=== PATIENT | female | born 1955 | race African-American/Black ===

== ENCOUNTER 2022-10-27 18:03 | Emergency (ER) | payer OTHER ==
[2022-10-27 18:12] VITALS: BP 126/64; PULSE 80; RESP 18; TEMP 98.9; BMI 34.5
[2022-10-27] MEDS ORDERED: ACETAMINOPHEN 1000 MG/100 ML BAG IVPB ONE (18:51)
[2022-10-27] MEDS ORDERED: ACETAMINOPHEN INJECTION 100 ML IVPB ONE (19:38)
[2022-10-27 20:04] LABS: HEMATOCRIT 37.8 % (32.4-45.2); HEMOGLOBIN 12.3 GM/dL (10.7-15.3); MCH 30.1 pg (25.7-33.7); MCHC 32.6 g/dl (32.0-36.0); MEAN CELL VOLUME 92.3 fl (80-96); MEAN PLT VOLUME 8.1 fl (7.5-11.1); PLATELET COUNT 276 10^3/uL (134-434); RBC 4.09 M/mm3 (3.60-5.2); RDW 15.2 % (11.6-15.6); WHITE BLOOD COUNT 9.4 K/mm3 (4.0-10.0)
[2022-10-27 20:19] LABS: POTASSIUM 4.3 mmol/L (3.5-5.1)
[2022-10-27 20:21] LABS: BLOOD UREA NITROGEN 10.6 mg/dL (7-18); CALCIUM 9.9 mg/dL (8.5-10.1)
[2022-10-27 20:22] LABS: ALBUMIN 3.9 g/dl (3.4-5.0); MAGNESIUM 1.9 mg/dL (1.8-2.4)
[2022-10-27 20:25] LABS: CREATININE 0.8 mg/dL (0.55-1.3)
[2022-10-27 20:26] LABS: BILIRUBIN,TOTAL 0.3 mg/dL (0.2-1); TOT PROT 7.3 g/dl (6.4-8.2)
[2022-10-27] MEDS ORDERED: KETOROLAC TROMETHAMINE 15 MG/ML VIAL IVPUSH ONE (20:44)
[2022-10-27] MEDS ORDERED: KETOROLAC TROMETHAMINE 15 MG/ML VIAL ONE (20:46)
[2022-10-27 21:35] LABS: EPI CELLS 30 /uL (0-25.1); HYALINE CASTS 0 /uL (0-3.1); PH,URINE 5.5 (5.0-8.0); URINE APPEARANCE CLEAR; URINE BACTERIA 319 /uL (0-1359); URINE BILIRUBIN NEGATIVE (NEGATIVE); URINE COLOR YELLOW; URINE GLUCOSE (UA) NEGATIVE (NEGATIVE); URINE KETONE NEGATIVE (NEGATIVE); URINE LEUK ESTERASE NEGATIVE (NEGATIVE); URINE NITRITE NEGATIVE (NEGATIVE); URINE PROTEIN NEGATIVE (NEGATIVE); URINE RBC 22 /uL (0-23.9); URINE UROBILINOGEN 0.2 mg/dL (0.2-1.0); URINE WBC 50 /uL (0-25.8)
== END 2022-10-27 23:53 | disposition home or self-care (01) ==
LOC: JER 18:03
PROC: 3E033NZ Introduction of Analgesics, Hypnotics, Sedatives into Peripheral Vein, Percutaneous Approach (ICD-10-PCS; principal; 2022-10-27)
PROC: 3E033GC Introduction of Other Therapeutic Substance into Peripheral Vein, Percutaneous Approach (ICD-10-PCS; 2022-10-27)
DX: M54.2 Cervicalgia (principal); M79.602 Pain in left arm; R07.89 Other chest pain; M25.512 Pain in left shoulder
CPT/HCPCS: 36415; 71045-TC-FY; 71275-TC; 72125-TC; 80053; 81003; 83735; 84484; 85027; 85379; 87086; 93005; 93010; 99285-25; Q9967

== ENCOUNTER 2023-03-16 14:35 | Inpatient (IN) | payer OTHER ==
[2023-03-16] MEDS ORDERED: MAG HYDROX/AL HYDROX/SIMETH 30 ML UNIT-DOSE CUP PO ONE (16:07)
[2023-03-16] MEDS ORDERED: ACETAMINOPHEN 1000 MG/100 ML BAG IVPB ONE ×2 (16:07→23:32)
[2023-03-16] MEDS ORDERED: FAMOTIDINE 20 MG/50 ML IVPB 20 MG/50 ML MG IVPB ONE ×2 (16:07→16:19)
[2023-03-16] MEDS ORDERED: ONDANSETRON 4 MG/2 ML VIAL IVPUSH ONE (16:08)
[2023-03-16] MEDS ORDERED: ONDANSETRON 4 MG/2 ML VIAL ONE (16:19)
[2023-03-16] MEDS ORDERED: MAG HYDROX/AL HYDROX/SIMETH 30 ML UNIT-DOSE CUP ONE (16:19)
[2023-03-16] MEDS ORDERED: ACETAMINOPHEN INJECTION 100 ML IVPB ONE (16:19)
[2023-03-16] MEDS ORDERED: SODIUM CHLORIDE 0.9% 500 ML INFUS.BAG IV ONE (16:23)
[2023-03-16 17:16] LABS: VENOUS BASE EXCESS -1.1 mmol/L (-2-2); VENOUS PCO2 50.9 mmHg (38-52); VENOUS PH 7.319 (7.310-7.410)
[2023-03-16 17:31] LABS: BASO % 0.1 % (0-2.0); HEMATOCRIT 38.4 % (32.4-45.2); HEMOGLOBIN 12.6 GM/dL (10.7-15.3); LYMPH % 5.1 % (8-40); MCH 30.4 pg (25.7-33.7); MCHC 32.9 g/dl (32.0-36.0); MEAN CELL VOLUME 92.4 fl (80-96); MEAN PLT VOLUME 8.3 fl (7.5-11.1); MONO % 2.3 % (3.8-10.2); NEUT % 92.5 % (42.8-82.8); PLATELET COUNT 281 10^3/uL (134-434); RBC 4.16 M/mm3 (3.60-5.2); RDW 14.1 % (11.6-15.6); WHITE BLOOD COUNT 11.2 K/mm3 (4.0-10.0)
[2023-03-16 17:33] LABS: EPI CELLS 8 /uL (0-25.1); HYALINE CASTS 1 /uL (0-3.1); URINE APPEARANCE CLEAR; URINE BACTERIA 35 /uL (0-1359); URINE BILIRUBIN NEGATIVE (NEGATIVE); URINE COLOR YELLOW; URINE GLUCOSE (UA) NEGATIVE (NEGATIVE); URINE KETONE 1+ (NEGATIVE); URINE LEUK ESTERASE NEGATIVE (NEGATIVE); URINE NITRITE NEGATIVE (NEGATIVE); URINE PROTEIN NEGATIVE (NEGATIVE); URINE RBC 54 /uL (0-23.9); URINE UROBILINOGEN 0.2 mg/dL (0.2-1.0); URINE WBC 6 /uL (0-25.8)
[2023-03-16 17:57] LABS: ANISOCYTOSIS 1+; MACROCYTOSIS 1+
[2023-03-16 17:58] LABS: ALBUMIN 4.3 g/dl (3.4-5.0)
[2023-03-16 17:59] LABS: BLOOD UREA NITROGEN 10.3 mg/dL (7-18)
[2023-03-16 18:01] LABS: CREATININE 0.9 mg/dL (0.55-1.3)
[2023-03-16 18:02] LABS: TOT PROT 7.8 g/dl (6.4-8.2)
[2023-03-16 18:03] LABS: BILIRUBIN,TOTAL 0.5 mg/dL (0.2-1)
[2023-03-16] MEDS ORDERED: morphine CARPU-JECT 4 MG/1 ML DISP.SYRIN IVPUSH ONE (18:17)
[2023-03-16] MEDS ORDERED: morphine SULFATE 4 MG/ML VIAL ONE (18:22)
[2023-03-16] MEDS ORDERED: ONDANSETRON 4 MG TABLET PO ONE (22:30)
[2023-03-16] MEDS ORDERED: ONDANSETRON *ODT* 4 MG TABLET ONE (22:41)
[2023-03-17 07:22] LABS: BASO % 0.5 % (0-2.0); EOS % 0.4 % (0-4.5); HEMATOCRIT 35.8 % (32.4-45.2); HEMOGLOBIN 11.8 GM/dL (10.7-15.3); LYMPH % 23.1 % (8-40); MCHC 32.9 g/dl (32.0-36.0); MEAN CELL VOLUME 94.2 fl (80-96); MEAN PLT VOLUME 8.8 fl (7.5-11.1); MONO % 10.2 % (3.8-10.2); NEUT % 65.8 % (42.8-82.8); PLATELET COUNT 240 10^3/uL (134-434); WHITE BLOOD COUNT 8.1 K/mm3 (4.0-10.0)
[2023-03-17] MEDS ORDERED: PANTOPRAZOLE SODIUM 40 MG VIAL ONE (09:51)
[2023-03-17] MEDS ORDERED: ONDANSETRON 4 MG/2 ML VIAL IVPUSH PRN (09:54)
[2023-03-17] MEDS: LACTATED RINGERS SOLUTION 1,000 ML/1,000 ML INFUS.BAG IV SCH ×2 (10:02→23:11)
[2023-03-17] MEDS: PANTOPRAZOLE SODIUM 40 MG VIAL IVPUSH SCH (10:03)
[2023-03-17 12:06] LABS: BASO % 0.5 % (0-2.0); EOS % 0.5 % (0-4.5); HEMATOCRIT 36.2 % (32.4-45.2); HEMOGLOBIN 11.8 GM/dL (10.7-15.3); LYMPH % 23.7 % (8-40); MCH 30.5 pg (25.7-33.7); MCHC 32.5 g/dl (32.0-36.0); MEAN CELL VOLUME 93.8 fl (80-96); MEAN PLT VOLUME 8.5 fl (7.5-11.1); MONO % 8.2 % (3.8-10.2); NEUT % 67.1 % (42.8-82.8); PLATELET COUNT 262 10^3/uL (134-434); RBC 3.86 M/mm3 (3.60-5.2); RDW 14.1 % (11.6-15.6); WHITE BLOOD COUNT 8.2 K/mm3 (4.0-10.0)
[2023-03-17] MEDS: ACETAMINOPHEN 1000 MG/100 ML BAG IVPB PRN (12:47)
[2023-03-17 12:57] VITALS: BMI 33.3
[2023-03-18] MEDS: ACETAMINOPHEN 1000 MG/100 ML BAG IVPB PRN (08:08)
[2023-03-18 10:08] LABS: BASO % 0.4 % (0-2.0); EOS % 2.2 % (0-4.5); HEMATOCRIT 34.5 % (32.4-45.2); MCH 30.4 pg (25.7-33.7); MCHC 31.9 g/dl (32.0-36.0); MEAN CELL VOLUME 95.3 fl (80-96); MEAN PLT VOLUME 8.6 fl (7.5-11.1); MONO % 8.1 % (3.8-10.2); NEUT % 58.3 % (42.8-82.8); PLATELET COUNT 240 10^3/uL (134-434); RBC 3.62 M/mm3 (3.60-5.2); RDW 14.5 % (11.6-15.6); WHITE BLOOD COUNT 5.7 K/mm3 (4.0-10.0)
[2023-03-18] MEDS: PANTOPRAZOLE SODIUM 40 MG VIAL IVPUSH SCH (10:16)
[2023-03-18] MEDS: LACTATED RINGERS SOLUTION 1,000 ML/1,000 ML INFUS.BAG IV SCH (10:17)
[2023-03-18] MEDS ORDERED: CEFAZOLIN 1 GM in DEXTROSE 5%-WATER - 50 ML IVPB ONE (10:30)
[2023-03-18 10:58] LABS: POTASSIUM 3.8 mmol/L (3.5-5.1)
[2023-03-18 11:12] LABS: ALBUMIN 3.6 g/dl (3.4-5.0); CALCIUM 8.9 mg/dL (8.5-10.1)
[2023-03-18 11:15] LABS: CREATININE 0.9 mg/dL (0.55-1.3)
[2023-03-18 11:16] LABS: BILIRUBIN,TOTAL 0.6 mg/dL (0.2-1); TOT PROT 6.4 g/dl (6.4-8.2)
[2023-03-18] MEDS ORDERED: FLU VACCINE (FLULAVAL) PF 60 MCG/0.5 ML SYRINGE 2023-2024 IM ONE (12:59)
[2023-03-19] MEDS: LACTATED RINGERS SOLUTION 1,000 ML/1,000 ML INFUS.BAG IV SCH (01:09)
[2023-03-19 08:51] LABS: BASO % 0.3 % (0-2.0); EOS % 1.3 % (0-4.5); HEMATOCRIT 36.2 % (32.4-45.2); HEMOGLOBIN 12.2 GM/dL (10.7-15.3); MCH 31.5 pg (25.7-33.7); MCHC 33.9 g/dl (32.0-36.0); MEAN CELL VOLUME 92.9 fl (80-96); MEAN PLT VOLUME 8.4 fl (7.5-11.1); MONO % 7.3 % (3.8-10.2); NEUT % 76.1 % (42.8-82.8); PLATELET COUNT 247 10^3/uL (134-434); RBC 3.89 M/mm3 (3.60-5.2); RDW 14.2 % (11.6-15.6)
[2023-03-19 08:55] LABS: POTASSIUM 3.9 mmol/L (3.5-5.1)
[2023-03-19 09:04] LABS: ALBUMIN 3.6 g/dl (3.4-5.0); BLOOD UREA NITROGEN 7.2 mg/dL (7-18)
[2023-03-19 09:05] LABS: CREATININE 0.8 mg/dL (0.55-1.3)
[2023-03-19 09:06] LABS: BILIRUBIN,TOTAL 0.6 mg/dL (0.2-1); TOT PROT 6.6 g/dl (6.4-8.2)
[2023-03-19] MEDS ORDERED: ACETAMINOPHEN 1000 MG/100 ML BAG IVPB PRN (09:38)
[2023-03-19] MEDS: PANTOPRAZOLE SODIUM 40 MG VIAL IVPUSH SCH (09:50)
[2023-03-20] MEDS: LACTATED RINGERS SOLUTION 1,000 ML/1,000 ML INFUS.BAG IV SCH ×2 (03:48→18:12)
[2023-03-20] MEDS: PANTOPRAZOLE SODIUM 40 MG VIAL IVPUSH SCH (09:12)
[2023-03-20 10:03] LABS: BASO % 0.4 % (0-2.0); EOS % 2.6 % (0-4.5); HEMATOCRIT 32.1 % (32.4-45.2); HEMOGLOBIN 10.6 GM/dL (10.7-15.3); LYMPH % 21.3 % (8-40); MCH 30.6 pg (25.7-33.7); MCHC 33.1 g/dl (32.0-36.0); MEAN CELL VOLUME 92.4 fl (80-96); MEAN PLT VOLUME 8.7 fl (7.5-11.1); MONO % 8.7 % (3.8-10.2); PLATELET COUNT 220 10^3/uL (134-434); RBC 3.47 M/mm3 (3.60-5.2); RDW 14.2 % (11.6-15.6)
[2023-03-20 10:19] LABS: POTASSIUM 3.8 mmol/L (3.5-5.1)
[2023-03-20 10:22] LABS: CALCIUM 9.2 mg/dL (8.5-10.1)
[2023-03-20 10:23] LABS: ALBUMIN 3.2 g/dl (3.4-5.0); BLOOD UREA NITROGEN 6.2 mg/dL (7-18)
[2023-03-20 10:26] LABS: CREATININE 0.7 mg/dL (0.55-1.3)
[2023-03-20 10:27] LABS: BILIRUBIN,TOTAL 0.7 mg/dL (0.2-1)
[2023-03-20 10:28] LABS: TOT PROT 5.9 g/dl (6.4-8.2)
[2023-03-20] MEDS ORDERED: BUPIVACAINE HCL/PF 0.25% (2.5MG/ML) 10 ML VIAL ONE (11:12)
[2023-03-20] MEDS ORDERED: BUPIVACAINE HCL/PF 0.25% (2.5MG/ML) 10 ML VIAL IJ ONE ×2 (11:23→14:00)
[2023-03-20] MEDS ORDERED: FENTANYL CITRATE/PF 50 MCG/ML VIAL ONE ×4 (13:02→17:17)
[2023-03-20] MEDS ORDERED: ROCURONIUM BROMIDE 50 MG/5 ML SYRINGE ONE ×2 (13:03→14:12)
[2023-03-20] MEDS ORDERED: PROPOFOL 40 ML ONE (13:03)
[2023-03-20] MEDS ORDERED: cefOXitin SODIUM 2 GM VIAL (RESTRICTED TO ID) IVPB ONE ×2 (13:56→14:00)
[2023-03-20] MEDS ORDERED: SEVOFLURANE 250 ML BTL ONE (14:51)
[2023-03-20] MEDS ORDERED: NEOSTIGMINE METHYLSULFATE 0.5 MG/1 ML - 10 ML MDV ONE (15:52)
[2023-03-20] MEDS ORDERED: ONDANSETRON 4 MG/2 ML VIAL IVPUSH PRN ×2 (16:43→16:47)
[2023-03-20] MEDS ORDERED: LACTATED RINGERS SOLUTION 1,000 ML IV SCH (17:00)
[2023-03-20] MEDS: ACETAMINOPHEN 1000 MG/100 ML BAG IVPB SCH ×2 (17:10→21:54)
[2023-03-20] MEDS: HEPARIN NA (PORCINE) 5,000 UNITS/ML 1ML VIAL SQ SCH (21:11)
[2023-03-21] MEDS: ACETAMINOPHEN 1000 MG/100 ML BAG IVPB SCH ×2 (03:49→12:02)
[2023-03-21] MEDS: LACTATED RINGERS SOLUTION 1,000 ML/1,000 ML INFUS.BAG IV SCH ×3 (04:20→17:43)
[2023-03-21] MEDS: HEPARIN NA (PORCINE) 5,000 UNITS/ML 1ML VIAL SQ SCH ×2 (09:32→21:17)
[2023-03-21] MEDS: PANTOPRAZOLE SODIUM 40 MG VIAL IVPUSH SCH (09:32)
[2023-03-21 10:01] LABS: BASO % 0.4 % (0-2.0); EOS % 0.8 % (0-4.5); HEMATOCRIT 34.8 % (32.4-45.2); HEMOGLOBIN 11.4 GM/dL (10.7-15.3); LYMPH % 24.2 % (8-40); MCH 30.6 pg (25.7-33.7); MCHC 32.8 g/dl (32.0-36.0); MEAN CELL VOLUME 93.1 fl (80-96); MEAN PLT VOLUME 8.7 fl (7.5-11.1); MONO % 7.4 % (3.8-10.2); NEUT % 67.2 % (42.8-82.8); PLATELET COUNT 223 10^3/uL (134-434); RBC 3.74 M/mm3 (3.60-5.2); RDW 14.2 % (11.6-15.6); WHITE BLOOD COUNT 7.2 K/mm3 (4.0-10.0)
[2023-03-21 10:17] LABS: POTASSIUM 3.9 mmol/L (3.5-5.1)
[2023-03-21 10:30] LABS: CALCIUM 8.9 mg/dL (8.5-10.1)
[2023-03-21 10:31] LABS: BLOOD UREA NITROGEN 7.7 mg/dL (7-18)
[2023-03-21 10:34] LABS: CREATININE 0.7 mg/dL (0.55-1.3)
[2023-03-21] MEDS: oxyCODONE HCL 5 MG TABLET PO PRN (15:49)
[2023-03-21] MEDS: morphine SULFATE 4 MG/ML VIAL IVPUSH PRN (19:37)
[2023-03-22] MEDS: oxyCODONE HCL 5 MG TABLET PO PRN (03:35)
[2023-03-22] MEDS: LACTATED RINGERS SOLUTION 1,000 ML/1,000 ML INFUS.BAG IV SCH ×2 (03:37→18:52)
[2023-03-22] MEDS: morphine SULFATE 4 MG/ML VIAL IVPUSH PRN ×2 (06:28→17:44)
[2023-03-22 09:31] LABS: BASO % 0.5 % (0-2.0); EOS % 1.4 % (0-4.5); HEMATOCRIT 33.2 % (32.4-45.2); HEMOGLOBIN 10.8 GM/dL (10.7-15.3); LYMPH % 27.5 % (8-40); MCH 30.8 pg (25.7-33.7); MCHC 32.5 g/dl (32.0-36.0); MEAN CELL VOLUME 94.7 fl (80-96); MEAN PLT VOLUME 8.6 fl (7.5-11.1); MONO % 8.2 % (3.8-10.2); NEUT % 62.4 % (42.8-82.8); PLATELET COUNT 246 10^3/uL (134-434); RBC 3.51 M/mm3 (3.60-5.2); RDW 14.2 % (11.6-15.6)
[2023-03-22 09:35] LABS: POTASSIUM 3.9 mmol/L (3.5-5.1)
[2023-03-22 09:38] LABS: BLOOD UREA NITROGEN 6.3 mg/dL (7-18)
[2023-03-22 09:43] LABS: CREATININE 0.8 mg/dL (0.55-1.3)
[2023-03-22] MEDS: HEPARIN NA (PORCINE) 5,000 UNITS/ML 1ML VIAL SQ SCH ×2 (10:42→22:19)
[2023-03-22] MEDS: PANTOPRAZOLE SODIUM 40 MG VIAL IVPUSH SCH (10:43)
[2023-03-23] MEDS: morphine SULFATE 4 MG/ML VIAL IVPUSH PRN (02:37)
[2023-03-23] MEDS ORDERED: POLYETHYLENE GLYCOL (HEALTHYLAX) 3350 17 GM PACKET PO ONE (09:15)
[2023-03-23] MEDS ORDERED: POLYETHYLENE GLYCOL (HEALTHYLAX) 3350 17 GM PACKET PO SCH ×2 (10:00→22:00)
[2023-03-23] MEDS ORDERED: MAGNESIUM CITRATE 300 ML BOTTLE PO ONE (10:00)
[2023-03-23] MEDS: PANTOPRAZOLE SODIUM 40 MG VIAL IVPUSH SCH (10:27)
[2023-03-23] MEDS: HEPARIN NA (PORCINE) 5,000 UNITS/ML 1ML VIAL SQ SCH ×2 (10:27→21:50)
[2023-03-23 10:45] LABS: BASO % 0.5 % (0-2.0); EOS % 1.9 % (0-4.5); HEMATOCRIT 33.8 % (32.4-45.2); HEMOGLOBIN 11.4 GM/dL (10.7-15.3); LYMPH % 32.4 % (8-40); MCH 31.1 pg (25.7-33.7); MCHC 33.6 g/dl (32.0-36.0); MEAN CELL VOLUME 92.8 fl (80-96); MEAN PLT VOLUME 8.9 fl (7.5-11.1); MONO % 8.9 % (3.8-10.2); NEUT % 56.3 % (42.8-82.8); PLATELET COUNT 254 10^3/uL (134-434); RBC 3.65 M/mm3 (3.60-5.2); RDW 14.6 % (11.6-15.6); WHITE BLOOD COUNT 7.3 K/mm3 (4.0-10.0)
[2023-03-23 10:51] LABS: CALCIUM 9.2 mg/dL (8.5-10.1)
[2023-03-23 10:52] LABS: BLOOD UREA NITROGEN 5.9 mg/dL (7-18)
[2023-03-23 10:55] LABS: CREATININE 0.7 mg/dL (0.55-1.3)
[2023-03-24 09:24] LABS: POTASSIUM 4.1 mmol/L (3.5-5.1)
[2023-03-24 09:27] LABS: CALCIUM 9.4 mg/dL (8.5-10.1)
[2023-03-24 09:28] LABS: BLOOD UREA NITROGEN 8.9 mg/dL (7-18)
[2023-03-24 09:31] LABS: CREATININE 0.7 mg/dL (0.55-1.3)
[2023-03-24] MEDS ORDERED: PSYLLIUM 5.85 GM PACKET PO SCH (10:00)
[2023-03-24 12:29] LABS: BASO % 0.4 % (0-2.0); EOS % 1.7 % (0-4.5); HEMOGLOBIN 11.3 GM/dL (10.7-15.3); LYMPH % 24.7 % (8-40); MCH 29.7 pg (25.7-33.7); MCHC 31.5 g/dl (32.0-36.0); MEAN CELL VOLUME 94.4 fl (80-96); MEAN PLT VOLUME 7.5 fl (7.5-11.1); NEUT % 65.2 % (42.8-82.8); PLATELET COUNT 294 10^3/uL (134-434); RBC 3.81 M/mm3 (3.60-5.2); RDW 13.9 % (11.6-15.6); WHITE BLOOD COUNT 7.5 K/mm3 (4.0-10.0)
[2023-03-24] MEDS ORDERED: ACETAMINOPHEN 1000 MG/100 ML BAG IVPB ONE (12:30)
[2023-03-25 04:26] VITALS: RESP 18
[2023-03-25] MEDS ORDERED: KETOROLAC TROMETHAMINE 30 MG/1 ML VIAL IM ONE (16:15)
[2023-03-26 06:09] VITALS: PULSE 60
[2023-03-26 10:56] VITALS: BP 117/62; TEMP 98.6
== END 2023-03-26 10:56 | disposition home or self-care (01) | DRG 418 ==
LOC: JER 14:35 → JERBED 20:26 → J6S 03-17 12:13
PROVIDERS: ADMIT Family Medicine; ATTEND Family Medicine
PROC: 0DB78ZX Excision of Stomach, Pylorus, Via Natural or Artificial Opening Endoscopic, Diagnostic (ICD-10-PCS; 2023-03-19)
PROC: 0DN84ZZ Release Small Intestine, Percutaneous Endoscopic Approach (ICD-10-PCS; 2023-03-20)
PROC: 0FJ44ZZ Inspection of Gallbladder, Percutaneous Endoscopic Approach (ICD-10-PCS; 2023-03-20)
PROC: 0FT44ZZ Resection of Gallbladder, Percutaneous Endoscopic Approach (ICD-10-PCS; principal; 2023-03-20 12:00)
DX: K80.20 Calculus of gallbladder without cholecystitis without obstruction (principal); K56.50 Intestinal adhesions [bands], unspecified as to partial versus complete obstruction; R11.2 Nausea with vomiting, unspecified; K29.60 Other gastritis without bleeding; R10.11 Right upper quadrant pain; K25.9 Gastric ulcer, unspecified as acute or chronic, without hemorrhage or perforation; E66.9 Obesity, unspecified; Z68.33 Body mass index [BMI] 33.0-33.9, adult; E11.9 Type 2 diabetes mellitus without complications
CPT/HCPCS: 0241U-QW; 36415; 71045-TC-FY; 73502-TC-RT-FY; 74018-TC-FY; 74019-TC-FY; 74177-TC; 76705-TC; 78226-TC; 80048; 80053; 81003; 82010; 82150; 82803; 82962; 83605; 83690; 84484; 85025; 86850; 86900; 86901; 87086; 88305-TC; 88307-TC; 90686; 93005; 93010; 94760; 97116-GP; 97162-GP; 99285-25; A9537; G0008; J1644; Q9967